=== PATIENT | male | born 1960 | race African-American/Black ===

== ENCOUNTER 2023-01-05 07:54 | Emergency (ER) | payer MEDICARE ==
--- NOTE | 2023-01-05 08:20 | ED Physician Documentation ---
PD HPI ABD PAIN - Stated complaint Stated Complaint: RT SIDE/BACK PX - Chief complaint Chief Complaint: Abd Pain - History obtained from History obtained from: Patient - History of Present Illness Timing - onset: How many hours ago (few), Today Timing - duration: Hours Timing - details: Abrupt onset, Still present Quality: Aching, Sharp, Pain Location: RUQ, RLQ Radiation: Right flank Improved by: No: Vomiting Worsened by: Moving, Palpation. No: Breathing Associated symptoms: Fever, Nausea, Vomiting. No: Diarrhea Similar symptoms before: Has not had sx before Review of Systems Nose: denies: Rhinorrhea / runny nose, Congestion Throat: denies: Sore throat Respiratory: denies: Cough GI: reports: Abdominal Pain, Nausea, Vomiting. denies: Constipation, Diarrhea : denies: Dysuria PD PAST MEDICAL HISTORY - Past Medical History Cardiovascular: None Respiratory: None Endocrine/Autoimmune: None - Present Medications Home Medications: Ambulatory Orders Medication Instructions Recorded Confirmed Morphine Ir [Ms Ir] 7.5 mg PO Q6H PRN #5 tablet 01/05/23 Naproxen 500 mg PO BID #14 tab 01/05/23 Ondansetron Odt [Zofran] 4 mg TL Q6H PRN #10 tablet 01/05/23 diphenhydrAMINE [Benadryl] 25 mg PO Q6H PRN #10 cap 01/05/23 - Allergies Allergies/Adverse Reactions: Allergies Allergy/AdvReac Type Severity Reaction Status Date / Time Penicillins Allergy Hives Verified 01/05/23 08:05 hydromorphone [From Dilaudid] AdvReac Hallucinati Verified 01/05/23 08:06 ons PD ED PE NORMAL - Vitals Vital signs reviewed: Yes - General General: Alert and oriented X 3, No acute distress (in significant discomfort.), Well developed/nourished - Neck Neck: Supple, no meningeal sign, No adenopathy - Cardiac Cardiac: RRR, No murmur - Respiratory Respiratory: Clear bilaterally - Abdomen Abdomen: Normal bowel sounds, Soft, Non distended, No organomegaly, Other (right mid and lower abd with tenderness to palpation without percussion nor rebound tenderness. ) - Derm Derm: Normal color, Warm and dry, No rash - Extremities Extremities: No edema - Neuro Neuro: Alert and oriented X 3, No motor deficit, Normal speech Results - Vitals Vitals: Oxygen O2 Source Room air - Labs Labs: Laboratory Tests 01/05/23 01/05/23 01/05/23 08:30 08:31 08:31 WBC 6.8 RBC 4.85 Hgb 14.1 Hct 42.5 MCV 87.6 MCH 29.1 MCHC 33.2 RDW 12.6 Plt Count 208 MPV 10.3 Neut # (Auto) 5.6 Lymph # (Auto) 0.7 L [place] # (Auto) 0.4 Eos # (Auto) 0.0 Baso # (Auto) 0.0 Absolute Nucleated RBC 0.00 Nucleated RBC % 0.0 Sodium 138 Potassium 3.6 Chloride 105 Carbon Dioxide 26 Anion Gap 7.0 BUN 14 Creatinine 1.2 Estimated GFR (MDRD) 61 L Glucose 99 Calcium 9.3 Total Bilirubin 0.6 AST 29 ALT 20 Alkaline Phosphatase 102 Total Protein 7.9 Albumin 4.6 Globulin 3.3 Albumin/Globulin Ratio 1.4 Lipase 14 Urine Color LIGHT YELLOW Urine Clarity CLEAR Urine pH 7.0 Ur Specific [place] 1.015 Urine Protein TRACE Urine Glucose (UA) NEGATIVE Urine Ketones NEGATIVE Urine Occult Blood SMALL H Urine Nitrite NEGATIVE Urine Bilirubin NEGATIVE Urine Urobilinogen 0.2 (NORMAL) Ur Leukocyte Esterase NEGATIVE Urine RBC 0-5 Urine WBC 0-3 Ur Squamous Epith Cells RARE Squamous Urine Bacteria Rare Ur Microscopic Review INDICATED Urine Culture Comments NOT INDICATED - Rads (name of study) abd/pelvic CT Relevant Findings:: Prelim report reviewed, EMP independent interpretation of te st (distal right ureteral stone 3 mm about into the bladder. Moderate hydronephrosis and ureter. ) PD Medical Decision Making - ED course Complexity details: reviewed results, re-evaluated patient (the patient had considerable improvement in pain after IV toradol, Zofran and Fentanyl. He was having pain return and so given IV lidocaine with improvment as well. He feels able to be discharged and was given dose meds again to help control the pain until he can get to the pharmacy from here. ), considered differential (abru[t pain right flank to right abdomen but is mid abdomen and not lower. Consider kidney stone, kidney infection, diverticulititis, appendicitis, ischemic bowel, among other causes. Can get labs and CT. Initial goal is pain improvement. ), d/w patient Reviewed Lab Results: Our CT scanner went down as I was about to order abd CT. Changed imaging to MRI abd/pel. Before that was obtained, the CT scanner was back in operation (about [address] showing 3 mm stone at right distal ureter almost to bladder. There was moderate hydronephrosis. Drug Therapy Requiring Monitoring for Toxicity: cations of fentanyl and IV lidocaine without any side effects. He was given Nubaine as well to see if something a bit longer lasting without causing itch like other opioids do for him. This was tolerated okay. He states he has marked itchiness with Hydromorphone, Hydrocodone and oxycodone in the past. He tolerated Fentanyl and then Nubaine without itchiness nor nausea. Departure - Departure Disposition: Home, Self Care Clinical Impression: Right sided abdominal pain, Ureterolithiasis Condition: Stable Record reviewed to determine appropriate education?: Yes Instructions: ED Stone Renal W Colic Prescriptions: diphenhydrAMINE [Benadryl] 25 mg PO Q6H PRN #10 cap PRN Reason: Itching Morphine Ir [Ms Ir] 7.5 mg PO Q6H PRN #5 tablet PRN Reason: Pain 5-7 Naproxen 500 mg PO BID #14 tab Ondansetron Odt [Zofran] 4 mg TL Q6H PRN #10 tablet PRN Reason: Nausea / Vomiting Comments: You do have a small 3 mm stone from the kidney that is down in the ureter almost into the bladder. Hopefully will pass soon this afternoon or so. It does seem close to passing in that regard. They can be a little bit unpredictable at times however. I do want to write prescriptions for some nausea medicine ondansetron. I would also take some Benadryl every 6 hours today to help reduce itching effect from any pain medicine. Start with basic anti-inflammatory such as ibuprofen or naproxen 2-3 times daily today and tomorrow and even the next few days. To that add Tylenol every 4-6 hours for pain. Above that try half to 1 morphine tablet. Hopefully this will not make you feel too weird and it often can have a little bit less histamine release than oxycodone or hydrocodone. You had received fentanyl IV here which did not seem to give you much problems. However its not available in a tablet form legitimately. I sent your prescriptions to [facility] pharmacy. Return if needed for worse symptoms. Hopefully this will improve through today though there may be some aching left for a day or 2 as the inflammation resolves. Follow-up echo with your primary care if not completely resolved over the next few days. Return to the ER if worse. I am prescribing a short course of narcotic pain medication for you. These are potentially dangerous and addictive medications that should be used carefully. These medications may constipate you. Take an ywpq-[id number]-iutifel stool softener such as docusate twice daily with plenty of water while taking these medications. If you go 24 hours without a bowel movement, take [id number] MiraLAX, per package instructions. Do not drink or drive while taking these medications. If you received narcotic or sedating medications while in the emergency department do not drive for 24 hours. Store this medication in a safe, secure place and out of reach of children. It is a violation of federal law to give or sell this medication to another person or to use in a manner other than prescribed. The ED will not refill narcotic prescriptions, including prescriptions lost or stolen. You can dispose of unwanted medications at the [facility] office or at several pharmacies such as [facility]. Forms: PCP List Discharge Date/Time: 01/05/23 14:00
[2023-01-05] MEDS ORDERED: SODIUM CHLORIDE 0.9% 1,000 ML IV STA (08:37)
[2023-01-05] MEDS ORDERED: KETOROLAC 15 MG/ML VIAL IVP STA (08:37)
[2023-01-05 08:38] LABS: BASOPHILS % (AUTO) 0.1 %; EOSINOPHILS % (AUTO) 0.1 %; HCT - HEMATOCRIT 42.5 % (42.0-52.0); HGB - HEMOGLOBIN 14.1 g/dL (14.0-18.0); LYMPHOCYTES # (AUTO) 0.7 10^3/uL (1.5-3.5); LYMPHOCYTES % (AUTO) 10.3 %; MEAN CORPUSCULAR HEMOGLOBIN 29.1 pg (27.0-31.0); MEAN CORPUSCULAR HGB CONC 33.2 g/dL (32.0-36.0); MEAN CORPUSCULAR VOLUME 87.6 fL (80.0-94.0); MEAN PLATELET VOLUME 10.3 fL (7.4-11.4); MONOCYTES # (AUTO) 0.4 10^3/uL (0.0-1.0); MONOCYTES % (AUTO) 6.3 %; NEUTROPHILS # (AUTO) 5.6 10^3/uL (1.5-6.6); NEUTROPHILS % (AUTO) 82.9 %; PLT - PLATELET COUNT 208 10^3/uL (130-450); RED BLOOD COUNT 4.85 10^6/uL (4.70-6.10); RED CELL DISTRIBUTION WIDTH 12.6 % (12.0-15.0); WHITE BLOOD COUNT 6.8 x10^3/uL (4.8-10.8)
[2023-01-05] MEDS ORDERED: ONDANSETRON 4 MG/2 ML VIAL IVP STA (08:38)
[2023-01-05] MEDS ORDERED: fentaNYL 100 MCG/2 ML VIAL IVP STA ×3 (08:38→11:55)
[2023-01-05 08:43] LABS: BILIRUBIN,URINE NEGATIVE (NEGATIVE); GLUCOSE, URINE (UA) NEGATIVE (NEGATIVE); KETONES,URINE (UA) NEGATIVE (NEGATIVE); LEUKOCYTE ESTERASE, URINE NEGATIVE (NEGATIVE); NITRITE,URINE NEGATIVE (NEGATIVE); OCCULT BLOOD,URINE SMALL (NEGATIVE); PROTEIN,URINE TRACE mg/dL (NEGATIVE); UROBILINOGEN,URINE 0.2 (NORMAL) E.U./dL (NORMAL)
[2023-01-05 08:44] LABS: CLARITY,URINE CLEAR (CLEAR)
[2023-01-05] MEDS: diphenhydrAMINE INJ 50 MG/ML VIAL IVP STA ×2 (08:51→08:54)
[2023-01-05 08:53] LABS: ALBUMIN 4.6 g/dL (3.2-5.5); ALBUMIN/GLOBULIN RATIO 1.4 (1.0-2.2); BILIRUBIN,TOTAL 0.6 mg/dL (0.2-1.0); CALCIUM 9.3 mg/dL (8.5-10.3); CREATININE 1.2 mg/dL (0.6-1.3); POTASSIUM 3.6 mmol/L (3.5-4.5); TOTAL PROTEIN 7.9 g/dL (6.4-8.9)
[2023-01-05 08:56] LABS: WBC,URINE 0-3 /HPF (0-3)
[2023-01-05 08:57] LABS: BACTERIA,URINE Rare /HPF (None Seen); RBC,URINE 0-5 /HPF (0-5); SQUAMOUS EPITHELIAL CELL,UR RARE Squamous (<= Few)
--- NOTE | 2023-01-05 10:25 | Ultrasound Report ---
PROCEDURE: Abdomen Limited INDICATIONS: right flank to right abd pain onset last evening TECHNIQUE: Real-time focused scanning was performed of the abdomen, with image documentation. COMPARISONS: None. FINDINGS: Liver: The liver measures 14.1 cm in length and demonstrates increased echogenicity. Gallbladder: Surgically absent. Biliary ducts: Intrahepatic bile ducts are non-dilated. Extrahepatic bile duct caliber measures 6.9 mm. Normal is 6-7 mm or less in diameter, or 10 mm or less post-cholecystectomy. Pancreas: Pancreas is not visualized. Right kidney: Normal in size and echotexture. Right kidney measures 11.5 cm long. No there is mild r ight hydronephrosis and moderate right perinephric fat stranding. No solid masses. There is a simple right renal cyst which measures 1.7 cm in diameter. IMPRESSION: 1. Increased hepatic echogenicity suggesting hepatic steatosis although other sources of hepatocellul ar dysfunction could be considered in the differential. 2. Right hydronephrosis and moderate right perinephric fat stranding. No nephrolithiasis. Reviewed by: Debbie Rene MD on 01/05/2023 10:24 AM PDT Approved by: Debbie Rene MD on 01/05/2023 10:24 AM PDT Station ID: [id number]
[2023-01-05] MEDS ORDERED: LIDOCAINE-MPF 2% 7 ML in SODIUM CHLORIDE 0.9% 50 ML IV STA (11:57)
--- NOTE | 2023-01-05 12:10 | CT Report ---
PROCEDURE: ABDOMEN/PELVIS WO INDICATIONS: right flank to abd pain TECHNIQUE: A CT scan of the abdomen and pelvis was performed without the use of intravenous contrast. Images we re recorded and evaluated at appropriate window settings. Reformats: coronal and sagittal. For radiat ion dose reduction, the following was used: automated exposure control, adjustment of mA and/or kV ac cording to patient size. COMPARISON: Abdominal ultrasound same day FINDINGS: Visualized lung bases: No pleural effusion. Liver and biliary tree: Unremarkable noncontrast appearance. Gallbladder: Surgically absent. Spleen: Unremarkable noncontrast appearance. Pancreas: Unremarkable noncontrast appearance. Adrenal glands: Unremarkable noncontrast appearance. Kidneys and ureters: Mild-moderate right hydroureteronephrosis. Renal cortical cysts are present. No left hydronephrosis. Gastrointestinal tract: Gastric bypass. No bowel obstruction. Peritoneal cavity: No free air. Mesenteric edema and/or prominent mesenteric vessels present, nonspec ific. Bladder: 3 mm stone present possibly at the right UVJ. Pelvic organs: Unremarkable noncontrast appearance. Vasculature: No abdominal aortic aneurysm. Musculoskeletal: Degenerative change of the spine. IMPRESSION: Mild-moderate right hydroureteronephrosis. A 3 mm stone is present at the right aspect of the urinary bladder, could be at the right ureterovesical junction or a stone recently passed into the bladder. Mesenteric edema and/or prominent mesenteric vessels present, nonspecific, unclear etiology or clinic al significance. Reviewed by: Enrike Bennett MD on 01/05/2023 12:09 PM PDT Approved by: Enrike Bennett MD on 01/05/2023 12:09 PM PDT Station ID: [id number]
[2023-01-05] MEDS ORDERED: TAMSULOSIN 0.4 MG CAPSULE PO STA (13:32)
[2023-01-05] MEDS ORDERED: NALBUPHINE 10 MG/ML AMP IVP STA (13:35)
[2023-01-05 14:03] VITALS: BP 130/88; O2SAT 98
== END 2023-01-05 14:00 | disposition home or self-care (01) ==
LOC: ED 07:54
DX: N13.2 Hydronephrosis with renal and ureteral calculous obstruction (principal)
CPT/HCPCS: 36415; 80053; 81001; 81003; 83690; 85025; 87086; 96365; 96375; 96376; 99284